=== PATIENT | female | born 1955 | race Caucasian/White ===

== ENCOUNTER 2023-04-05 06:22 | Day surgery (SDC) | payer MEDICARE, MEDICAID ==
[~2023-04-05] VITALS: Ht 160 cm; Wt 80.3 kg
[~2023-04-05 06:22] MED LIST: ALEN70TA82; AMLO1TAB25; BSS IRRIG/VANCO(10MG)/TOBRA(5MG)/EPINEPH(1:1000-0.5CC)500ML BAG-ORONLY IR ONE; CALC600T57 PO; CARV6.25; CYCLOPENTOLATE 1% OPHTH SOLN 2ML BTL OD SCH; ECOT81TA5 PO; FURO20TA2; IRON65TA2 PO; JARD1TAB; LEVO75TA4; LIDOCAINE 3.5 % 1ML OPHTH TOPICAL GEL OU ONE; LISI40TA4; METF10004; MULTTAB24 PO; OFLOXACIN 0.3 % (OCUFLOX) OPTH SOL 5ML OD ONE; OMEG1CAP85; OMEP-173; PHENYLEPHRINE 10% OPHTH SOL 5ML OD PRN; PHENYLEPHRINE 2.5% OPHTH SOL 2ML OD SCH; PROA1AER2; ROSU20TA61; TROPICAMIDE 1% OPHTH SOLN 15ML OD SCH; VICT18IN2
[2023-04-05] MEDS ORDERED: CEFUROXIME 1MG/0.1ML INTRACAMERAL INJ As Ordered ONE (06:43)
[2023-04-05] MEDS ORDERED: LIDOCAINE 1% SDV 5ML VIAL As Ordered ONE (06:43)
[2023-04-05] MEDS ORDERED: INSULIN LISPRO (NovoLOG) PER UNIT SC PRN (07:35)
[2023-04-05] MEDS ORDERED: MIDAZOLAM INJ 2MG/2ML VIAL As Ordered ONE (07:50)
[2023-04-05] MEDS ORDERED: fentaNYL 100 MCG/2 ML INJECTION As Ordered ONE (07:50)
[2023-04-05] MEDS ORDERED: TETRACAINE 0.5% OPHTH SOLN 4ML OD ONE (08:00)
[2023-04-05] MEDS ORDERED: diphenhydrAMINE 50MG/ML VIAL IV PRN (08:05)
[2023-04-05 10:16] VITALS: BP 135/63; TEMP 97.2; O2SAT 96
== END 2023-04-05 10:33 | disposition home or self-care (01) ==
LOC: M SDC 06:22
PROVIDERS: ATTEND Ophthalmology
DX: E11.36 Type 2 diabetes mellitus with diabetic cataract (principal); H26.9 Unspecified cataract; I10 Essential (primary) hypertension; E03.9 Hypothyroidism, unspecified; E78.00 Pure hypercholesterolemia, unspecified; Z79.890 Hormone replacement therapy; Z79.899 Other long term (current) drug therapy; Z79.891 Long term (current) use of opiate analgesic; Z86.73 Personal history of transient ischemic attack (TIA), and cerebral infarction without residual deficits; Z88.8 Allergy status to other drugs, medicaments and biological substances; Z88.4 Allergy status to anesthetic agent; Z79.84 Long term (current) use of oral hypoglycemic drugs
CPT/HCPCS: 66984; J0697; J1200; J1815; J2250; J3010; V2632